=== PATIENT | male | born 1960 | race Caucasian/White ===

== ENCOUNTER 2017-11-08 09:39 | Emergency (ER) | payer MEDICARE, OTHER ==
[2017-11-08] MEDS: morphine 4 MG/ML VIAL IM (11:18)
== END 2017-11-08 13:10 | disposition home or self-care (01) ==
LOC: FTE 09:39
DX: M54.2 Cervicalgia (principal); M54.9 Dorsalgia, unspecified
CPT/HCPCS: 72125; 96372; 99285-25